=== PATIENT | female | born 1975 | race Caucasian/White ===

== ENCOUNTER → 2021-04-30 14:59 | Outpatient (BNVA) | payer BC, SELFPAY | PROVIDERS: Visit Provider Nurse Practitioner Family | DX: I10 Essential (primary) hypertension (principal); E66.01 Morbid (severe) obesity due to excess calories; E11.65 Type 2 diabetes mellitus with hyperglycemia; Z72.0 Tobacco use; R53.83 Other fatigue | CPT/HCPCS: 80053; 80061; 82043; 83036; 84443; 85025 ==

== ENCOUNTER 2022-09-07 20:00 | Outpatient (CLI) | payer BC, SELFPAY | END 2022-09-07 20:01 | disposition home or self-care (01) | LOC: SLEEP 09-08 07:55 | PROVIDERS: Visit Provider Nurse Practitioner Family | DX: R06.83 Snoring (principal); R53.83 Other fatigue; G47.33 Obstructive sleep apnea (adult) (pediatric) | CPT/HCPCS: 95810 ==

== ENCOUNTER 2022-09-29 20:00 | Outpatient (CLI) | payer OTHER, BC, SELFPAY | END 2022-09-29 20:01 | disposition home or self-care (01) | LOC: SLEEP 09-30 05:23 | PROVIDERS: Visit Provider Nurse Practitioner Family | DX: G47.33 Obstructive sleep apnea (adult) (pediatric) (principal) | CPT/HCPCS: 95811 ==